=== PATIENT | female | born 1930 | race Caucasian/White ===

== ENCOUNTER 2018-04-19 07:13 | Day surgery (SDC) | payer OTHER ==
[~2018-04-19] VITALS: Ht 149.9 cm; Wt 64.8 kg
[~2018-04-19 07:13] MED LIST: ASMANEX HFA13 GM IH; ASPIRIN81 M2 PO; CALCIUM + D3 E1 EACH PO; COZAAR25 MG PO; CRESTOR10 MG PO; GLUCOSAMINE &1 EAC1 PO; IRON PO; PROTONIX20 MG PO; SUPER B-50 COM1 EACH PO; TRAMADOL HCL50 MG PO; VENTOLIN HFA18 GM IH; VITAMIN D31000 UNI2 PO
[2018-04-19 08:31] VITALS: BP 166/78
[2018-04-19 12:30] VITALS: BP 192/84
[2018-04-19 13:07] VITALS: BP 156/69
== END 2018-04-19 13:20 | disposition home or self-care (01) ==
LOC: SDC 07:13
PROC: 08DK3ZZ Extraction of Left Lens, Percutaneous Approach (ICD-10-PCS; principal; 2018-04-19)
PROC: 08B53ZZ Excision of Left Vitreous, Percutaneous Approach (ICD-10-PCS; principal; 2018-04-19)
DX: H43.02 Vitreous prolapse, left eye (principal); T85.22XA Displacement of intraocular lens, initial encounter; Y77.3 Surgical instruments, materials and ophthalmic devices (including sutures) associated with adverse incidents; I10 Essential (primary) hypertension; J45.909 Unspecified asthma, uncomplicated; K21.9 Gastro-esophageal reflux disease without esophagitis; Z79.82 Long term (current) use of aspirin
CPT/HCPCS: J0690